=== PATIENT | female | born 1970 | race Hispanic/Latino ===

== ENCOUNTER 2019-03-28 11:35 | Observation (INO) | payer OTHER ==
[~2019-03-28] VITALS: Ht 154.9 cm; Wt 60.3 kg
[~2019-03-28 11:35] MED LIST: DIPH25 PO; LEVO112T7 PO; METH125V14 IJ; RITU1010I INJ
[2019-03-28 13:35] VITALS: BP 107/69
--- NOTE | 2019-03-28 13:35 | NUR ---
PT ORIENTED TO ROOM. 20G IV STARTED TO LEFT AC, SALINE FLUSHED. SITE WNL. NO PAIN REPORTED FROM PATIENT. INSTRUCTED PT TO REMAIN NPO. PT VOICED UNDERSTANDING.
[2019-03-28] MEDS ORDERED: CLINDAMYCIN 900 MG/D5% WATER 50 ML IV SCH (14:45)
[2019-03-28] MEDS ORDERED: MEPERIDINE-PF 50 MG/ML SYG IM PRN (14:45)
[2019-03-28] MEDS ORDERED: GENTAMICIN SULFATE/PF 10 MG/1 ML 2ML IV SCH (14:45)
[2019-03-28] MEDS ORDERED: PROMETHAZINE HCL 25 MG/ML 1ML AMPULE IM PRN ×2 (14:45)
[2019-03-28] MEDS ORDERED: ACETAMINOPHEN EXTRA STRENGTH 500 MG TABLET PO PRN (14:45)
[2019-03-28 14:50] LABS: HEMATOCRIT 38.9 % (36-48); MEAN CORPUSCULAR HEMOGLOBIN 31.9 pg (27.0-33.0); MEAN CORPUSCULAR HGB CONC 33.6 g/dL (32.0-36.0); MEAN CORPUSCULAR VOLUME 94.9 fL (79-99); PLATELET COUNT (AUTO) 251 K/uL (130-400); RED CELL DISTRIBUTION WIDTH 12.5 % (11.0-15.5)
[2019-03-28] MEDS ORDERED: GENTAMICIN 120 MG IN 100ML NS 100 ML IV SCH (15:00)
[2019-03-28 15:07] LABS: ALBUMIN 3.9 g/dL (3.5-5.0); BILIRUBIN,TOTAL 0.4 mg/dL (0.2-1.0); CREATININE 0.7 mg/dL (0.5-1.5); TOTAL PROTEIN, SERUM 7.2 g/dL (6.0-8.3)
[2019-03-28] MEDS ORDERED: IOHEXOL-350 75 ML VIAL IV ONE (15:30)
--- NOTE | 2019-03-28 15:30 | NUR ---
PT LEFT UNIT VIA WHEELCHAIR FOR CT PROCEDURE.
[2019-03-28 16:15] VITALS: BP 109/78
--- NOTE | 2019-03-28 16:20 | NUR ---
VAGINAL CULTURES DONE AT THIS TIME. PT TOLERATED WELL. MOTHER REMAINED IN ROOM BEHIND CURTAIN AT PATIENT'S REQUEST.
[2019-03-28] MEDS ORDERED: FLU VACC QS2019-20 36MOS UP/PF 60 MCG/0.5 ML ML IM ONE (16:30)
--- NOTE | 2019-03-28 18:20 | NUR ---
MADE AWARE OF CT RESULTS. NEW ORDERS FOR REGULAR DIET RECEIVED.
--- NOTE | 2019-03-28 18:36 | NUR ---
DR. JAFFE ROUNDING ON PATIENT AT THIS TIME. POC DISCUSSED. QUESTIONS INVITED AND ANSWERED. PT VOICED UNDERSTANDING.
--- NOTE | 2019-03-28 19:05 | NUR ---
DISCHARGE INSTRUCTIONS READ AND EXPLAINED TO PATIENT. PRESCRIPTION FOR FLAGYL 500MG HANDED TO PATIENT. QUESTIONS INVITED AND ANSWERED. NO COMPLAINTS OR CONCERNS VOICED. PATIENT VOICED UNDERSTANDING OF DISCHARGE INSTRUCTIONS.
--- NOTE | 2019-03-28 19:15 | NUR ---
PATIENT LEFT UNIT VIA WHEELCHAIR WITH BELONGINGS IN HAND. PERSONAL VEHICLE USED FOR TRANSPORTATION.
[2019-03-28] MEDS ORDERED: GENTAMICIN 80 MG/NS 100 ML PB 100 ML IV SCH (23:00)
[2019-03-29] MEDS ORDERED: LEVOTHYROXINE 112 MCG TABLET PO SCH ×2 (06:30→09:00)
== END 2019-03-28 19:15 | disposition home or self-care (01) ==
LOC: WSH 13:04
PROVIDERS: ADMIT Obstetrics & Gynecology; ATTEND Obstetrics & Gynecology
DX: R10.2 Pelvic and perineal pain (principal); Z23 Encounter for immunization
CPT/HCPCS: 36415; 72194; 80053; 85027; 87070; 87077; 87186; 90471; 96365; 96367; G0378; J1580; J3490; Q2035; Q9967

== ENCOUNTER → 2020-12-11 | Outpatient (CLI) | payer OTHER | END | disposition home or self-care (01) | LOC: OIH 10:22 | PROVIDERS: ATTEND Internal Medicine | DX: M47.892 Other spondylosis, cervical region (principal) | CPT/HCPCS: 72040 ==

== ENCOUNTER 2022-06-12 00:46 | Emergency (ER) | payer BC, OTHER ==
[~2022-06-12] VITALS: Ht 157.5 cm; Wt 65.3 kg
[~2022-06-12 00:46] MED LIST changes: +DIPH-1242 PO; -DIPH25 PO
[2022-06-12] MEDS ORDERED: SILVER NITRATE APPLICATOR 1 SWAB TP ONE (01:13)
[2022-06-12] MEDS ORDERED: OXYMETAZOLINE HCL SPRAY 15 ML BOTTLE ONE (01:16)
[2022-06-12] MEDS ORDERED: SILVER NITRATE APPLICATOR 1 SWAB TP SCH (01:30)
[2022-06-12] MEDS ORDERED: OXYMETAZOLINE HCL SPRAY 15 ML BOTTLE EN SCH (01:30)
[2022-06-12 01:50] LABS: BASOPHILS % (AUTO) 0.3 % (0.0-5.0); EOSINOPHILS % (AUTO) 4.4 % (0.0-8.0); HEMATOCRIT 35.5 % (36-48); LYMPHOCYTES % (AUTO) 15.4 % (21.0-51.0); MEAN CORPUSCULAR HEMOGLOBIN 32.8 pg (27.0-33.0); MEAN CORPUSCULAR HGB CONC 33.8 g/dL (32.0-36.0); MONOCYTES % (AUTO) 10.8 % (3.0-13.0); NEUTROPHILS % (AUTO) 68.8 % (40.0-77.0); PLATELET COUNT (AUTO) 219 K/uL (130-400); RED BLOOD CELL COUNT(AUTO) 3.66 MIL/uL (4.00-5.50); RED CELL DISTRIBUTION WIDTH 12.1 % (11.0-15.5); WHITE BLOOD COUNT (AUTO) 5.9 K/uL (4.8-10.8)
[2022-06-12 01:57] LABS: CREATININE 0.8 mg/dL (0.5-1.5); POTASSIUM 3.7 mmol/L (3.5-5.1)
[2022-06-12 01:59] LABS: INR 0.93 (0.85-1.15); PROTHROMBIN TIME 9.8 SEC (9.6-11.6)
[2022-06-12 02:00] LABS: PARTIAL THROMBOPLASTIN TIME 24.9 SEC (26.3-35.5)
[2022-06-12] MEDS ORDERED: HYDROCODONE/ACETAMINOPHEN 10/325 MG TAB PO ONE (02:00)
[2022-06-12 02:02] LABS: ALBUMIN 3.7 g/dL (3.5-5.0)
[2022-06-12] MEDS ORDERED: ACETAMINOPHEN 500 MG TABLET ONE (02:02)
[2022-06-12] MEDS ORDERED: IBUP-1493 PO (02:20)
[2022-06-12] MEDS ORDERED: CEPH500B PO (02:20)
[2022-06-12] MEDS ORDERED: ACETAMINOPHEN 500 MG TABLET PO ONE (02:30)
[2022-06-12 02:48] VITALS: BP 120/68
== END 2022-06-12 02:49 | disposition home or self-care (01) ==
LOC: EDH 00:46
DX: R04.0 Epistaxis (principal); E03.9 Hypothyroidism, unspecified; Z79.899 Other long term (current) drug therapy; Z98.890 Other specified postprocedural states; Z90.710 Acquired absence of both cervix and uterus
CPT/HCPCS: 30901; 36415; 80053; 85025; 85610; 85730